=== PATIENT | male | born 2000 ===

== ENCOUNTER 2020-12-05 13:15 | Observation (INO) ==
[2020-12-05 14:32] LABS: ABS Basophils 0.1 10^3/ul (0-0.2); ABS Eosinophils 0.1 10^3/ul (0-0.6); ABS Lymphocytes 1.9 10^3/ul (1.0-4.8); ABS Monocytes 0.7 10^3/ul (0-0.8); Eosinophil % 0.6 %; Hematocrit 47 % (42-52); Hemoglobin 16.5 g/dL (14.0-18.0); Lymphocyte % 19.4 %; Mean Corpuscular HGB Conc 35 g/dL (31-36); Mean Corpuscular Hemoglobin 31 pg (27-31); Mean Corpuscular Volume 90 fL (80-94); Mean Platelet Volume 8.8 fL (7.4-10.4); Platelet Count 306 10^3/uL (150-450); Red Blood Count 5.28 10^6 /uL (4.18-5.48); Red Cell Distribution Width 12 % (10-15); White Blood Count 9.6 10^3/uL (3.5-10.8)
[2020-12-05] MEDS ORDERED: Lorazepam PYXIS KEY PRN (14:43)
[2020-12-05] MEDS ORDERED: LORazepam 2 mg VIAL 1 ml IV PUSH ONE (14:43)
[2020-12-05 14:55] LABS: Albumin 4.8 g/dL (3.2-5.2); Albumin/Globulin Ratio 1.5 (1-3); C Reactive Protein 9.28 mg/L (<8.01); Calcium 10.1 mg/dL (8.6-10.3); EGFR African American 115.5 (>60); EGFR Non-African American 95.4 (>60); Globulin 3.2 g/dL (2-4); Potassium 3.4 mmol/L (3.5-5.0); Total Bilirubin 1.4 mg/dL (0.2-1.0)
[2020-12-05] MEDS ORDERED: Iohexol 300 (CONTRAST) 10 ML SDV IV ONE (16:07)
[2020-12-05] MEDS ORDERED: NS 0.9% 1000 ml BAG 1,000 ML IV ONE ×2 (17:01→18:00)
[2020-12-05] MEDS ORDERED: Morphine 4 MG/ML VIAL (1 ml) IV ONE (17:02)
[2020-12-05] MEDS ORDERED: Piperacillin/Tazobac ADVAN 3.375 GM in NS 0.9% 100 ml BAG 100 ML IV ONE (17:55)
[2020-12-05] MEDS ORDERED: Ondansetron 4 mg VIAL 2 MG/ML 2 ml VIAL IV PRN (19:56)
[2020-12-05] MEDS ORDERED: HYDROmorphone 1 MG/1 ML SYRINGE IV SLOW PU PRN (19:56)
[2020-12-05] MEDS ORDERED: NS 0.9% 1000 ml BAG 1,000 ML IV SCH (20:00)
[2020-12-05] MEDS ORDERED: Piperacillin/Tazobactam VIAL 3.375 GM in NS 0.9% 100 ml BAG 100 ML IVPB SCH (22:00)
[2020-12-05] MEDS ORDERED: fentaNYL 250 mcg/5 ml 50 MCG/ML 5 ml VIAL (250 MCG) ONE (22:11)
[2020-12-05] MEDS ORDERED: Propofol 10 MG/ML 20 ML BTL ONE (22:11)
[2020-12-05] MEDS ORDERED: Dexamethasone IV 4 MG/ML VIAL 1 ml VIAL ONE (22:11)
[2020-12-05] MEDS ORDERED: Rocuronium 50 mg VIAL 10 mg/ml 5 ml VIAL (50 mg) ONE (22:11)
[2020-12-05] MEDS ORDERED: Lidocaine 2% PF 5 ML VIAL ONE (22:11)
[2020-12-05] MEDS ORDERED: Midazolam 2 mg/2 ml VIAL 1 mg/ml 2 ml VIAL (2 mg) ONE (22:11)
[2020-12-05] MEDS ORDERED: Sevoflurane BOTTLE ONE (22:45)
[2020-12-05] MEDS ORDERED: Sugammadex 500 MG/5 ML 5 ml VIAL IV PUSH ONE (23:51)
[2020-12-05] MEDS ORDERED: Ondansetron 4 mg VIAL 2 MG/ML 2 ml VIAL ONE (23:51)
[2020-12-06] MEDS ORDERED: Propofol 10 MG/ML 20 ML BTL ONE (00:12)
[2020-12-06] MEDS ORDERED: Acetaminophen IV 1 GM/100ML 1,000 MG/100 ML VIAL IVPB PRN (00:13)
[2020-12-06] MEDS ORDERED: Naloxone 0.4 mg VIAL 0.4 mg/ml 1 ml VIAL IV PRN (00:13)
[2020-12-06] MEDS ORDERED: HYDROmorphone 1 MG/1 ML SYRINGE IV PRN (00:13)
[2020-12-06] MEDS ORDERED: Ondansetron 4 mg VIAL 2 MG/ML 2 ml VIAL IV PRN (00:13)
[2020-12-06] MEDS ORDERED: fentaNYL 100 mcg/2 ml 50 MCG/ML VIAL IV PRN (00:13)
[2020-12-06] MEDS ORDERED: Acetaminophen IV 1 GM/100ML 100 ML ONE (00:27)
[2020-12-06] MEDS ORDERED: Ondansetron 4 mg VIAL 2 MG/ML 2 ml VIAL ONE (00:50)
[2020-12-06 07:36] VITALS: BP 126/74
[2020-12-06] MEDS ORDERED: oxyCODONE/Acetamin 5/325 mg TAB PO PRN (09:18)
== END 2020-12-06 11:00 | disposition home or self-care (01) ==
LOC: ED 13:15 → SSU 20:59 → INTOOBSV 20:59
PROVIDERS: ADMIT Surgery; ATTEND Surgery